=== PATIENT | female | born 1970 | race Caucasian/White ===

== ENCOUNTER 2024-06-13 14:30 | Outpatient (CLI) | payer MEDICAID, SELFPAY ==
[2024-06-13 19:35] LABS: Basophils # 0.1 K/mm3 (0-0.2); Basophils % 0.8 % (0.1-2.0); Eosinophils # 0.1 K/mm3 (0.0-0.4); Eosinophils % 1.2 % (0.1-12.0); Hematocrit 51.9 % (37.0-47.0); Hemoglobin 17.6 g/dL (12.2-16.2); Lymphocytes # 3.5 K/mm3 (0.7-4.5); Lymphocytes % 30.7 % (10-50); Mean Corpuscular HGB Conc 33.9 g/dL (31.8-35.4); Mean Corpuscular Hemoglobin 32.2 pg (27.0-31.2); Mean Corpuscular Volume 95.2 fl (81-99); Mean Platelet Volume 8.6 fl (7.4-10.4); Monocytes # 0.7 K/mm3 (0.1-1.0); Monocytes % 5.8 % (1.7-9.3); Neutrophils # 7.1 K/mm3 (1.8-7.8); Neutrophils % 61.4 % (37.0-80.0); Platelet Count 271 K/mm3 (142-424); Red Blood Count 5.45 M/mm3 (4.20-5.40); Red Cell Distribution Width 13.5 % (11.5-17.5); White Blood Count 11.5 K/mm3 (4.8-10.8)
[2024-06-13 20:15] LABS: Alanine Aminotransferase 54 U/L (12-78); Albumin Level 4.6 g/dl (3.5-5.0); Albumin/Globulin Ratio 1.9 (1.1-1.8); Alkaline Phosphatase 113 U/L (38-126); Anion Gap 14.3 mEq/L (5-15); Aspartate Amino Transferase 46 U/L (14-36); Bilirubin,Total 0.4 mg/dl (0.2-1.3); Blood Urea Nitrogen 9 mg/dl (7-17); Calcium 9.7 mg/dl (8.4-10.2); Carbon Dioxide 28 mmol/L (22.0-30.0); Chloride 103 mmol/L (98-107); Chol/HDL Ratio 7.1 (1-3.5); Cholesterol 285 mg/dl (140-200); Estimated Glomerular Filt Rate 75 ml/min (>60); GFR (African American) 91 ML/MIN (>60); Globulin 2.4 g/dL (1.3-3.2); Glucose 122 mg/dl (74-100); HDL Cholesterol 40 mg/dl (40-60); Potassium 4.3 mmoL/L (3.5-5.1); Sodium 141 mmol/L (136-145); Triglycerides 323 mg/dl (30-150); VLDL Cholesterol 65 mg/dL (0-40)
[2024-06-13 20:48] LABS: Thyroid Stimulating Hormone 1.24 uIU/mL (0.465-4.68)
== END 2024-06-13 23:59 | disposition home or self-care (01) ==
LOC: LAB.DROPOF 06-15 09:20
PROVIDERS: PCP Family Medicine; Visit Provider Family Medicine
DX: E11.9 Type 2 diabetes mellitus without complications (principal); Z79.85 Long-term (current) use of injectable non-insulin antidiabetic drugs
CPT/HCPCS: 80050; 80053; 80061; 84443; 85025

== ENCOUNTER 2024-11-07 10:10 | Outpatient (CLI) | payer MEDICAID, SELFPAY ==
[2024-11-07 18:24] LABS: Basophils # 0.1 K/mm3 (0-0.2); Basophils % 0.7 % (0.1-2.0); Eosinophils # 0.2 Kmm3 (0.0-0.4); Eosinophils % 1.6 % (0.1-12.0); Hematocrit 51.5 % (37.0-47.0); Lymphocytes # 3.8 K/mm3 (0.7-4.5); Lymphocytes % 31.3 % (10-50); Monocytes # 0.5 K/mm3 (0.1-1.0); Monocytes % 4.3 % (1.7-9.3); Neutrophils # 7.5 K/mm3 (1.8-7.8); Neutrophils % 61.5 % (37.0-80.0); Nucleated Red Blood Cells # 0 10^3/uL; Nucleated Red Blood Cells % 0 %; Platelet Count 290 K/mm3 (142-424); Red Blood Count 5.31 M/mm3 (4.20-5.40); Red Cell Distribution Width 13.3 % (11.5-17.5); Red Cell Distribution Width-SD 47.9 fL; White Blood Count 12.2 K/mm3 (4.8-10.8)
[2024-11-07 18:42] LABS: Albumin Level 4.3 g/dl (3.5-5.0); Chloride 104 mmol/L (98-107); Sodium 140 mmol/L (136-145)
[2024-11-07 18:43] LABS: Potassium 5.1 mmoL/L (3.5-5.1)
[2024-11-07 18:45] LABS: Alanine Aminotransferase 24 U/L (12-78); Albumin/Globulin Ratio 1.7 (1.1-1.8); Alkaline Phosphatase 112 U/L (38-126); Anion Gap 14.1 mEq/L (5-15); Aspartate Amino Transferase 33 U/L (14-36); Bilirubin,Total 0.2 mg/dl (0.2-1.3); Blood Urea Nitrogen 9 mg/dl (7-17); Carbon Dioxide 27 mmol/L (22.0-30.0); Cholesterol 210 mg/dl (140-200); Estimated Glomerular Filt Rate 65 ml/min (>60); GFR (African American) 79 ML/MIN (>60); Globulin 2.5 g/dL (1.3-3.2); Total Protein,Serum 6.8 g/dl (6.3-8.2); Triglycerides 262 mg/dl (30-150); VLDL Cholesterol 52 mg/dL (0-40)
[2024-11-07 18:46] LABS: Calcium 9.3 mg/dl (8.4-10.2); Chol/HDL Ratio 4.7 (1-3.5); Glucose 100 mg/dl (74-100); HDL Cholesterol 45 mg/dl (40-60)
[2024-11-07 18:56] LABS: Direct LDL Cholesterol 111.97 mg/dL (100-129)
[2024-11-07 19:16] LABS: Thyroid Stimulating Hormone 1.35 uIU/mL (0.465-4.68)
[2024-11-07 19:35] LABS: Hepatitis C Ab Qual. W/ RFX NEGATIVE (Negative)
[2024-11-08 11:11] LABS: HIV Combo NEGATIVE (Negative)
== END 2024-11-07 23:59 | disposition home or self-care (01) ==
LOC: LAB.DROPOF 11-08 09:38
PROVIDERS: PCP Family Medicine; Visit Provider Family Medicine
DX: E11.9 Type 2 diabetes mellitus without complications (principal)
CPT/HCPCS: 80053; 80061; 84443; 85025; 86803; 87389

== ENCOUNTER 2025-05-14 16:24 | Outpatient (CLI) | payer MEDICAID, SELFPAY ==
[2025-05-14 19:17] LABS: Hematocrit 52.2 % (37.0-47.0); Hemoglobin 17.5 g/dL (12.2-16.2); Immature Granulocytes % 0.4 %; Mean Corpuscular HGB Conc 33.5 g/dL (31.8-35.4); Mean Corpuscular Hemoglobin 32.2 pg (27.0-31.2); Mean Corpuscular Volume 96.0 fl (81-99); Nucleated Red Blood Cells % 0 %; Platelet Count 293 K/mm3 (142-424); Red Blood Count 5.44 M/mm3 (4.20-5.40); Red Cell Distribution Width-SD 43.8 fL; White Blood Count 13.4 K/mm3 (4.8-10.8)
[2025-05-14 19:59] LABS: Total Cells Counted 100
[2025-05-14 20:00] LABS: Anisocytosis 1+; Macrocytosis 1+; Microcytosis 1+; Poikilocytosis 1+; Target Cells 1+
[2025-05-14 20:01] LABS: Giant Platelets 1+; Polychromasia 1+
[2025-05-14 20:02] LABS: Tear Drop Cells 1+
[2025-05-14 20:09] LABS: Alanine Aminotransferase 19 U/L (12-78); Albumin Level 3.7 g/dl (3.5-5.0); Albumin/Globulin Ratio 1.0 (1.1-1.8); Alkaline Phosphatase 107 U/L (38-126); Amylase 75 U/L (30-110); Anion Gap 15.5 mEq/L (5-15); Aspartate Amino Transferase 25 U/L (14-36); Bilirubin,Total 0.5 mg/dl (0.2-1.3); Blood Urea Nitrogen 10 mg/dl (7-17); Calcium 10.3 mg/dl (8.4-10.2); Carbon Dioxide 28 mmol/L (22.0-30.0); Chloride 97 mmol/L (98-107); Cholesterol 222 mg/dl (140-200); Creatinine,Serum 0.90 mg/dl (0.52-1.04); Estimated Glomerular Filt Rate 65 ml/min (>60); GFR (African American) 79 ML/MIN (>60); Globulin 3.6 g/dL (1.3-3.2); Glucose 111 mg/dl (74-100); HDL Cholesterol 42 mg/dl (40-60); Lipase 256 U/L (23-300); Potassium 4.5 mmoL/L (3.5-5.1); Sodium 136 mmol/L (136-145); Total Protein,Serum 7.3 g/dl (6.3-8.2); Triglycerides 395 mg/dl (30-150)
[2025-05-14 20:39] LABS: Thyroid Stimulating Hormone 2.66 uIU/mL (0.465-4.68)
[2025-05-14 20:59] LABS: Hemoglobin A1C 5.6 % (4.0-6.0); Vitamin B12 663 pg/mL (239-931)
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
== END 2025-05-14 23:59 ==
LOC: LAB.DROPOF 05-15 11:57
PROVIDERS: PCP Nurse Practitioner; Visit Provider Nurse Practitioner
DX: R10.13 Epigastric pain (principal); R11.2 Nausea with vomiting, unspecified; K21.9 Gastro-esophageal reflux disease without esophagitis; Z87.891 Personal history of nicotine dependence; E11.9 Type 2 diabetes mellitus without complications; E78.5 Hyperlipidemia, unspecified
CPT/HCPCS: 80053; 80061; 82043; 82150; 82570; 82607; 83036; 83690; 84443; 85007; 85025

== ENCOUNTER 2025-05-22 13:56 | Outpatient (CLI) | payer MEDICAID, SELFPAY ==
--- NOTE | 2025-05-22 14:00 | CT_ITS ---
FINAL REPORT TECHNIQUE: Thin section axial images were obtained through the lungs using a low-dose technique per lung cancer screening protocol. Reconstruction images were obtained using the axial data. Exam was performed using dose reduction technique. CLINICAL HISTORY: lung cancer screening current smoker, 1 1/2 ppd x 40 yrs COMPARISON: None FINDINGS: CTDLvol: 2.90 DLP: 96.38 Current smoker 60 pack year history Lungs: No acute pulmonary abnormality. No suspicious nodules. Lymph nodes: No thoracic lymphadenopathy. Mediastinum: Heart size is normal. Incidental note is made of an aberrant right subclavian artery. Pleura/pericardium: No pleural or pericardial effusion. Other: No acute abnormality in the upper abdomen. IMPRESSION: No suspicious pulmonary nodule or mass. Lung RADS: 1 Recommendation: 12-month LDCT follow-up. Reviewed, Interpreted and Dictated by Jennifer Lerma MD Transcribed by Mary Marc Authenticated and [facility]
--- NOTE | 2025-05-22 14:06 | XR_ITS ---
FINAL REPORT CLINICAL HISTORY: abdominal/mid chest pain with GERD COMPARISON: None FINDINGS: PA and lateral views of the chest are obtained. There is no prior exam for comparison. The cardiac and mediastinal silhouettes are within normal limits. The lungs are clear. There is no pleural effusion, pneumothorax, or acute osseous abnormality. IMPRESSION: No radiographic evidence of acute cardiac or pulmonary disease. Reviewed, Interpreted and Dictated by Jennifer Lerma MD Transcribed by Mary Marc Authenticated and [facility]
== END 2025-05-22 23:59 | disposition home or self-care (01) ==
LOC: RAD 13:56
PROVIDERS: PCP Nurse Practitioner; Visit Provider Nurse Practitioner
DX: K21.9 Gastro-esophageal reflux disease without esophagitis (principal); R10.13 Epigastric pain; R07.89 Other chest pain; Z87.891 Personal history of nicotine dependence; Z12.2 Encounter for screening for malignant neoplasm of respiratory organs
CPT/HCPCS: 71046; 71271